=== PATIENT | female | born 1995 | race African-American/Black ===

== ENCOUNTER 2018-12-09 00:21 | Emergency (ER) | payer BC ==
[2018-12-09] MEDS ORDERED: Ketorolac Tromethamine 30 MG/ML VIAL ONE (01:11)
[2018-12-09] MEDS ORDERED: diphenhydrAMINE 50 MG CAP ONE (01:11)
[2018-12-09] MEDS ORDERED: methylPREDNISolone Sod Succ/PF 125 MG/2 ML VIAL ONE (01:11)
[2018-12-09] MEDS ORDERED: Acetaminophen 500 MG TAB ONE (01:11)
[2018-12-09 02:06] LABS: #Lymphocytes 0.6 thou/uL (1.20-3.40); #Neutrophils 3.1 thou/uL (1.40-6.50); %Eosinophils 0.1 % (0.0-10.0); %Lymphocytes 16.2 % (21.0-51.0); %Monocytes 0.6 % (0.0-10.0); %Neutrophils 83.1 % (42.0-75.0); Hemoglobin 8.2 g/dL (12.0-16.0); Mean Corpuscular HGB CONC 31.8 g/dL (32.0-36.0); Mean Corpuscular Hemoglobin 24.8 pg (27.0-31.0); Mean Corpuscular Volume 78.1 fL (78.0-98.0); Mean Platelet Volume 7.5 fL (7.4-10.4); Platelet Count 421 thou/uL (130-400); RBC Distribution Width 15.9 % (11.5-14.5); Red Blood Cell (RBC) Count 3.32 mill/uL (4.20-5.40); White Blood Cell (WBC) Count 3.7 thou/uL (4.8-10.8)
[2018-12-09 02:10] LABS: Reticulocyte Count 1.9 % (0.5-1.5)
[2018-12-09 02:24] LABS: ALT (SGPT) 19 U/L (8-55); AST (SGOT) 22 U/L (5-34); Albumin 4.6 g/dL (3.5-5.0); Alkaline Phosphatase 111 U/L (40-150); Anion Gap 14 mmol/L (10-20); BUN (Urea Nitrogen) 10 mg/dL (7.0-18.7); Bilirubin, Total 0.2 mg/dL (0.2-1.2); Calc. Creatinine Clearance 0 mL/min (70-130); Carbon Dioxide 23 mmol/L (22-29); Chloride 105 mmol/L (98-107); Estimated GFR-MDRD Greater than 90; Globulin 2.6 g/dL (2.4-3.5); Glucose 137 mg/dL (70-105); Potassium 3.9 mmol/L (3.5-5.1); Protein, Total 7.2 g/dL (6.0-8.3); Sodium 138 mmol/L (136-145)
[2018-12-09] MEDS ORDERED: SODIUM CHLORIDE 0.9% IVPB SCH (02:45)
[2018-12-09] MEDS ORDERED: HYDROMORPHONE IVPB SCH (02:45)
--- NOTE | 2018-12-09 07:51 | RAD ---
CHEST 2 VIEWS: Date: 12/09/18 INDICATION: History of sickle cell crisis. COMPARISON: None. FINDINGS: There is a left chest wall port in place. Lungs are clear. Heart size is normal. Nipple areolar ornam entation overlies the anterior chest wall. No acute osseous abnormality is evident. IMPRESSION: No acute cardiopulmonary abnormality. POS: [facility]
== END 2018-12-09 07:05 | disposition home or self-care (01) ==
LOC: ERS 00:21
DX: D57.00 Hb-SS disease with crisis, unspecified (principal); Z79.899 Other long term (current) drug therapy
CPT/HCPCS: 71046; 80053; 85025; 85046; 96361; 96365; 96366; 96375; J1170; J1642; J1885; J2930; J3490; Q0153